=== PATIENT | male | born 1985 | race Caucasian/White ===

== ENCOUNTER → 2020-04-01 11:06 | Emergency (ER) | payer MEDICAID, OTHER ==
[~2020-04-01] VITALS: Ht 167.6 cm; Wt 122.5 kg
[2020-04-01 11:12] VITALS: BP 137/86
== END | disposition home or self-care (01) ==
LOC: ER 11:06
DX: Z20.7 Contact with and (suspected) exposure to pediculosis, acariasis and other infestations (principal); R21 Rash and other nonspecific skin eruption; L29.8 Other pruritus; F17.210 Nicotine dependence, cigarettes, uncomplicated; E66.9 Obesity, unspecified; Z68.41 Body mass index [BMI] 40.0-44.9, adult

== ENCOUNTER 2020-04-14 13:21 | Emergency (ER) | payer MEDICAID ==
[~2020-04-14] VITALS: Ht 167.6 cm; Wt 122.5 kg
[2020-04-14 13:42] VITALS: BP 135/85
== END 2020-04-14 15:08 | disposition home or self-care (01) ==
LOC: ER 13:21
DX: B86 Scabies (principal); F17.210 Nicotine dependence, cigarettes, uncomplicated

== ENCOUNTER 2020-05-09 10:02 | Emergency (ER) | payer MEDICAID ==
[~2020-05-09] VITALS: Ht 167.6 cm; Wt 122.5 kg
[2020-05-09] MEDS ORDERED: cefTRIAXone W LIDOCAINE 1 GM IM IM ONE (10:30)
[2020-05-09 10:41] VITALS: BP 141/84
== END 2020-05-09 11:23 | disposition home or self-care (01) ==
LOC: ER 10:02
DX: S46.911A Strain of unspecified muscle, fascia and tendon at shoulder and upper arm level, right arm, initial encounter (principal); L03.115 Cellulitis of right lower limb; F17.210 Nicotine dependence, cigarettes, uncomplicated; X58.XXXA Exposure to other specified factors, initial encounter; Y93.89 Activity, other specified; Y92.89 Other specified places as the place of occurrence of the external cause; Y99.8 Other external cause status
CPT/HCPCS: 73030; 96372; 99283; J0696